=== PATIENT | female | born 1985 | race Hispanic/Latino ===

== ENCOUNTER 2017-06-20 13:34 | Emergency (ER) | payer SELFPAY ==
[2017-06-20] MEDS ORDERED: SODIUM CHLORIDE 0.9% 1000ML 1,000 ML IV ONE ×2 (13:45→15:05)
[2017-06-20 14:00] LABS: APPEARANCE,URINE Clear (CLEAR); BILIRUBIN,URINE Negative (NEGATIVE); COLOR,URINE Yellow (YELLOW); GLUCOSE, URINE (UA) >=1000 mg/dL (NEGATIVE); KETONES,URINE Negative (NEGATIVE); LEUKOCYTE ESTERASE ,URINE Trace (NEGATIVE); NITRATE,URINE Negative (NEGATIVE); OCCULT BLOOD,URINE Moderate (NEGATIVE); PH,URINE 6.5 (5.0-8.0); PROTEIN,URINE Negative (NEGATIVE); UROBILINOGEN,URINE 0.2 mg/dL (0.2-1.0)
[2017-06-20 14:03] LABS: BASOPHILS % (AUTO) 0.6 % (0.0-5.0); EOSINOPHILS % (AUTO) 0.6 % (0.0-8.0); HEMATOCRIT 41.1 % (36-48); LYMPHOCYTES % (AUTO) 16.9 % (21.0-51.0); MEAN CORPUSCULAR HEMOGLOBIN 25.6 pg (27.0-33.0); MEAN CORPUSCULAR HGB CONC 33.6 g/dL (32.0-36.0); MEAN CORPUSCULAR VOLUME 76.1 fL (79-99); MONOCYTES % (AUTO) 5.1 % (3.0-13.0); NEUTROPHILS % (AUTO) 76.8 % (40.0-77.0); PLATELET COUNT (AUTO) 301 K/uL (130-400); RED CELL DISTRIBUTION WIDTH 12.7 % (11.0-15.5); WHITE BLOOD COUNT (AUTO) 11.6 K/uL (4.8-10.8)
[2017-06-20 14:04] LABS: HCG,QUAL RESULT NEGATIVE (NEGATIVE)
[2017-06-20 14:08] LABS: AMPHET/METH SCREEN,URINE NEGATIVE (NEGATIVE); BARBITURATE SCREEN, URINE NEGATIVE (NEGATIVE); BENZODIAZEPINES SCREEN,URINE NEGATIVE (NEGATIVE); CANNABINOID SCREEN,URINE NEGATIVE (NEGATIVE); COCAINE SCREEN,URINE NEGATIVE (NEGATIVE); OPIATE SCREEN,URINE NEGATIVE (NEGATIVE); PHENCYCLIDINE SCREEN,URINE NEGATIVE (NEGATIVE)
[2017-06-20 14:26] LABS: BACTERIA,URINE Few /HPF (None Seen); WBC,URINE 0-1 /HPF (0-1)
[2017-06-20 14:41] LABS: CREATININE 0.9 mg/dL (0.5-1.5); POTASSIUM 3.7 mmol/L (3.5-5.1)
[2017-06-20] MEDS ORDERED: PANTOPRAZOLE SODIUM 40 MG TABLET.DR PO ONE (14:48)
[2017-06-20] MEDS ORDERED: HYDROXYZINE HCL 25 MG TABLET ONE (14:48)
== END 2017-06-20 16:17 | disposition home or self-care (01) ==
LOC: EDH 13:34
DX: E11.9 Type 2 diabetes mellitus without complications (principal); F43.22 Adjustment disorder with anxiety; R07.9 Chest pain, unspecified
CPT/HCPCS: 36415; 80048; 80305; 81001; 81025; 82948; 84484; 85025; 87804 ×2; 93005; 96360; 99285; J7030 ×2

== ENCOUNTER 2020-12-31 23:43 | Emergency (ER) | payer OTHER ==
[~2020-12-31] VITALS: Ht 152.4 cm; Wt 90.7 kg
[2021-01-01 00:47] VITALS: BP 134/78
[2021-01-01 01:04] LABS: BASOPHILS % (AUTO) 0.2 % (0.0-5.0); EOSINOPHILS % (AUTO) 1.8 % (0.0-8.0); HEMATOCRIT 34.1 % (36-48); LYMPHOCYTES % (AUTO) 25.1 % (21.0-51.0); MEAN CORPUSCULAR HEMOGLOBIN 24.2 pg (27.0-33.0); MEAN CORPUSCULAR HGB CONC 32.6 g/dL (32.0-36.0); MEAN CORPUSCULAR VOLUME 74.5 fL (79-99); MONOCYTES % (AUTO) 4.8 % (3.0-13.0); NEUTROPHILS % (AUTO) 67.8 % (40.0-77.0); PLATELET COUNT (AUTO) 279 K/uL (130-400); RED BLOOD CELL COUNT(AUTO) 4.58 MIL/uL (4.00-5.50); RED CELL DISTRIBUTION WIDTH 13.5 % (11.0-15.5)
[2021-01-01 01:22] LABS: CREATININE 0.7 mg/dL (0.5-1.5); POTASSIUM 3.4 mmol/L (3.5-5.1)
[2021-01-01 01:23] LABS: ALBUMIN 3.6 g/dL (3.5-5.0); BILIRUBIN,TOTAL 0.3 mg/dL (0.2-1.0); TOTAL PROTEIN, SERUM 7.5 g/dL (6.0-8.3)
[2021-01-01 02:19] LABS: APPEARANCE,URINE Clear (CLEAR); BILIRUBIN,URINE Negative (NEGATIVE); COLOR,URINE Yellow (YELLOW); GLUCOSE, URINE (UA) Negative (NEGATIVE); KETONES,URINE Negative (NEGATIVE); LEUKOCYTE ESTERASE ,URINE Moderate (NEGATIVE); NITRATE,URINE Negative (NEGATIVE); OCCULT BLOOD,URINE Trace (NEGATIVE); PH,URINE 5.5 (5.0-8.0); PROTEIN,URINE Negative (NEGATIVE)
[2021-01-01 02:52] LABS: RBC,URINE 0-1 /HPF (0-1)
[2021-01-01 02:54] LABS: BACTERIA,URINE Few /HPF (None Seen)
[2021-01-01] MEDS ORDERED: IOHEXOL 350 MG/ML 100ML INFUS..BTL IV ONE (03:24)
[2021-01-01 03:28] VITALS: BP 105/86
[2021-01-01 05:03] VITALS: BP 113/77
[2021-01-01 06:04] VITALS: BP 118/78
[2021-01-01] MEDS: BISACODYL 10 MG SUPP.RECT RC ONE ×2 (06:16→06:17)
[2021-01-01] MEDS ORDERED: MAGNESIUM CITRATE 296 ML SOLUTION ONE (07:07)
[2021-01-01] MEDS: MAGNESIUM CITRATE 296 ML SOLUTION PO ONE (07:07)
== END 2021-01-01 07:14 | disposition home or self-care (01) ==
LOC: EDH 23:43
DX: K59.00 Constipation, unspecified (principal); E11.9 Type 2 diabetes mellitus without complications; Z20.822 Contact with and (suspected) exposure to COVID-19
CPT/HCPCS: 36415; 74178; 80053; 81001; 81025; 83690; 85025; 86140; 87088; 87426; 99285; Q9967

== ENCOUNTER 2021-10-24 23:02 | Emergency (ER) | payer OTHER ==
[~2021-10-24] VITALS: Ht 157.5 cm; Wt 80.7 kg
[2021-10-24 23:04] VITALS: BP 164/91
[2021-10-24] MEDS ORDERED: FAMOTIDINE 20MG TAB ONE (23:22)
[2021-10-24] MEDS ORDERED: DIPHENHYDRAMINE HCL 25 MG CAPSULE ONE (23:23)
[2021-10-24] MEDS ORDERED: FAMO-136 PO (23:27)
[2021-10-24] MEDS ORDERED: CETI1SOL17 PO (23:27)
[2021-10-24] MEDS ORDERED: DIPHENHYDRAMINE HCL 25 MG CAPSULE PO ONE (23:30)
[2021-10-24] MEDS ORDERED: FAMOTIDINE 20MG TAB PO ONE (23:30)
== END 2021-10-24 23:33 | disposition home or self-care (01) ==
LOC: EDH 23:02
DX: L25.8 Unspecified contact dermatitis due to other agents (principal); L50.9 Urticaria, unspecified; R03.0 Elevated blood-pressure reading, without diagnosis of hypertension; E11.9 Type 2 diabetes mellitus without complications
CPT/HCPCS: 99283; Q0163